=== PATIENT | male | born 1990 | race Caucasian/White ===

== ENCOUNTER 2017-04-21 06:47 | Emergency (ER) | payer MEDICAID ==
[~2017-04-21] VITALS: Ht 165.1 cm; Wt 135.6 kg
[2017-04-21 06:52] VITALS: Ht 165.1 cm; Wt 135.6 kg
[2017-04-21 07:30] LABS: BASOPHIL % 0.4 % (0-2); PLATELET COUNT 346 x10^3mcL (130-400); RED CELL DISTRIBUTION WIDTH 13.5 % (11.5-14.5)
[2017-04-21 08:42] VITALS: BP 130/75
== END 2017-04-21 08:42 | disposition home or self-care (01) ==
LOC: ED 06:47
PROVIDERS: Specialist
DX: J20.9 Acute bronchitis, unspecified (principal)
CPT/HCPCS: 36415; 83880; 87804; J7512; J7613; J7644

== ENCOUNTER 2017-06-02 11:27 | Emergency (ER) | payer MEDICAID ==
[~2017-06-02] VITALS: Ht 167.6 cm; Wt 134.4 kg
[2017-06-02 14:52] VITALS: BP 117/74
== END 2017-06-02 14:52 | disposition home or self-care (01) ==
LOC: ED 11:27
DX: B34.9 Viral infection, unspecified (principal); Z88.6 Allergy status to analgesic agent

== ENCOUNTER 2018-06-11 00:21 | Emergency (ER) | payer MEDICAID ==
[~2018-06-11] VITALS: Ht 170.2 cm; Wt 134.3 kg
[2018-06-11 00:41] VITALS: BP 151/97; Ht 170.2 cm; Wt 134.3 kg
== END 2018-06-11 01:59 | disposition home or self-care (01) ==
LOC: ED 00:21
DX: J02.9 Acute pharyngitis, unspecified (principal); J40 Bronchitis, not specified as acute or chronic; J45.909 Unspecified asthma, uncomplicated; E11.9 Type 2 diabetes mellitus without complications; Z88.6 Allergy status to analgesic agent
CPT/HCPCS: J7512

== ENCOUNTER 2018-12-17 00:08 | Emergency (ER) | payer MEDICAID ==
[~2018-12-17] VITALS: Ht 170.2 cm; Wt 137.0 kg
[2018-12-17 00:17] VITALS: BP 116/57; Ht 170.2 cm; Wt 137.0 kg
[2018-12-17 00:56] LABS: PLATELET COUNT 338 x10^3mcL (130-400); RED CELL DISTRIBUTION WIDTH 13.2 % (11.5-14.5)
[2018-12-17 00:57] LABS: BASOPHIL % 3.9 % (0-2)
[2018-12-17 01:06] LABS: CALCIUM 8.4 mg/dL (8.5-10.1); CARBON DIOXIDE 26.7 mmol/L (21-32); CHLORIDE SERUM 106 mmol/L (98-107); GFR1 > 60 mL/min; GLUCOSE SERUM 219 mg/dL (74-106); POTASSIUM SERUM 3.6 mmol/L (3.5-5.1); SODIUM SERUM 142 mmol/L (136-145)
[2018-12-17 01:11] LABS: ALBUMIN 3.5 g/dL (3.4-5.0); ALKALINE PHOSPHATASE 111 U/L (46-116); ALT/SGPT 43 U/L (16-63); AST/SGOT 15 U/L (15-37); BILIRUBIN TOTAL 0.19 mg/dL (0.20-1.00); TOTAL PROTEIN, SERUM 7.5 g/dL (6.4-8.2)
== END 2018-12-17 01:40 | disposition home or self-care (01) ==
LOC: ED 00:08
PROVIDERS: Emergency Medicine
DX: K58.0 Irritable bowel syndrome with diarrhea (principal); J45.909 Unspecified asthma, uncomplicated; E11.9 Type 2 diabetes mellitus without complications; Z98.890 Other specified postprocedural states; Z88.6 Allergy status to analgesic agent
CPT/HCPCS: 36415; J1200; J1885

== ENCOUNTER 2019-04-02 18:25 | Emergency (ER) | payer MEDICAID ==
[~2019-04-02] VITALS: Ht 170.2 cm; Wt 134.3 kg
[2019-04-02 18:30] VITALS: Ht 170.2 cm; Wt 134.3 kg
[2019-04-02 22:34] VITALS: BP 165/100
== END 2019-04-02 22:21 | disposition home or self-care (01) ==
LOC: ED 18:25
DX: J18.9 Pneumonia, unspecified organism (principal); J45.909 Unspecified asthma, uncomplicated; E11.9 Type 2 diabetes mellitus without complications; Z88.6 Allergy status to analgesic agent
CPT/HCPCS: 87804; J0696; J7030; J7060